=== PATIENT | male | born 1990 | race Caucasian/White ===

== ENCOUNTER 2017-02-09 17:46 | Emergency (ER) | payer MEDICAID, OTHER ==
[~2017-02-09] VITALS: Ht 175.3 cm; Wt 75.5 kg
[2017-02-09 18:41] VITALS: Ht 175.3 cm; Wt 75.5 kg
[2017-02-09] MEDS ORDERED: MECLIZINE 12.5 MG TAB PO ONE (21:00)
--- NOTE | 2017-02-09 21:11 | ERD ---
ER Documentation Chief Complaint Chief Complaint dizziness off/on x3 months. +nosebleed x1 year HPI 26-year-old male for complaints of on and off dizziness for 3 months now, describes the dizziness as spinning sensation, on and off, felt lightheaded at times. Patient is also complains of on and off headache, throbbing pain 4/10 scale, not better or worse with anything. Patient denies any nausea vomiting diarrhea or. Patient is on and off nasal bleeds, last nosebleed episode was 2 days ago. Patient denies any other bleeding symptoms. Patient denies any blood in the stool or black stool. Patient denies any other bleeding symptoms ROS All systems reviewed and are negative except as per history of present illness. Medications Home Meds Reported Medications [none] Unknown Strength No Conflict Check 02/09/17 Allergies Allergies: Coded Allergies: No Known Drug Allergy (Verified Allergy, Unknown, 02/09/17) PMhx/Soc Medical and Surgical Hx: pt denies Medical Hx, pt denies Surgical Hx Hx Alcohol Use: No Hx Substance Use: No Hx Tobacco Use: No Smoking Status: Never smoker FmHx Family History: No coronary disease, No diabetes, No other Physical Exam Vitals Vital Signs Date Time Temp Pulse Resp B/P Pulse Ox O2 Delivery O2 Flow Rate FiO2 02/09/17 18:41 98.8 78 18 125/92 100 Physical Exam GENERAL: The patient is well developed and appropriate for usual state of health, in no apparent distress. CHEST: Clear to auscultation bilaterally. There are no rales, wheezes or rhonchi. HEART: Regular rate and rhythm. No murmurs, clicks, rubs or gallops. No S3 or S4. ABDOMEN: Soft, nontender and nondistended. Good bowel sounds. No rebound or guarding. No gross peritonitis. No gross organomegaly or masses. No Villegas sign or McBurney point tenderness. BACK: No midline or flank tenderness. EXTREMITIES: Equal pulses bilaterally. There is no peripheral clubbing, cyanosis or edema. No focal swelling or erythema. Full range of motion. Grossly neurovascularly intact. NEURO: Alert and oriented. Cranial nerves 2-12 intact. Motor strength in all 4 extremities with 5/5 strength. Sensation grossly intact. Normal speech and gait. Negative Romberg sign. Negative pronator drift. Positive Nieves-Hallpike exam SKIN: There is no apparent rash or petechia. The skin is warm and dry. HEMATOLOGIC AND LYMPHATIC: There is no evidence of excessive bruising or lymphedema. No gross cervical, axillary, or inguinal lymphadenopathy. Result Diagram: 02/09/17209902/09/172099 Results 24 hrs Laboratory Tests Test 02/09/17 21:00 White Blood Count 15.410^3/ul Red Blood Count 5.1310^6/ul Hemoglobin 14.5g/dl Hematocrit 42.6% Mean Corpuscular Volume 83.0fl Mean Corpuscular Hemoglobin 28.3pg Mean Corpuscular Hemoglobin Concent 34.0g/dl Red Cell Distribution Width 12.9% Platelet Count 16929^3/UL Mean Platelet Volume 12.1fl Neutrophils % 77.2% Lymphocytes % 14.6% Monocytes % 7.3% Eosinophils % 0.3% Basophils % 0.3% Nucleated Red Blood Cells % 0.0/100WBC Neutrophils # 11.910^3/ul Lymphocytes # 2.310^3/ul Monocytes # 1.110^3/ul Eosinophils # 0.010^3/ul Basophils # 0.110^3/ul Nucleated Red Blood Cells # 0.010^3/ul Sodium Level 141mmol/L Potassium Level 4.0mmol/L Chloride Level 97mmol/L Carbon Dioxide Level 28mmol/L Anion Gap 20 Blood Urea Nitrogen 14mg/dl Creatinine 0.99mg/dl Glucose Level 72mg/dl Calcium Level 10.2mg/dl Total Bilirubin 0.9mg/dl Direct Bilirubin 0.00mg/dl Indirect Bilirubin 0.9mg/dl Aspartate Amino Transf (AST/SGOT) 36IU/L Alanine Aminotransferase (ALT/SGPT) 40IU/L Alkaline Phosphatase 82IU/L Total Protein 9.2g/dl Albumin 5.3g/dl Globulin 3.90g/dl Albumin/Globulin Ratio 1.35 Current Medications Medications (Trade) Dose Ordered Sig/Lisset Route PRN Reason Start Time Stop Time Status Last Admin Dose Admin Meclizine HCl (Antivert) 25 mg ONCE ONCE PO 02/09/17 21:00 02/09/17 21:01 DC 02/09/17 21:08 Meclizine was given here in emergency department. EKG was done, read by me and is normal sinus rhythm at a rate of 72, normal axis , there is no ST changes or changes in the EKG that indicates any cardiac emergencies at this time. Patient's EKG was also reviewed by Dr. Youssef. Impression: no acute findings on EKG PROCEDURE: CT Brain without. CLINICAL INDICATION: Dizziness. TECHNIQUE: A CT of the brain was performed on multidetector high-resolution CT scanner utilizing axial sections from the skull base through the vertex without contrast. The scan was reviewed in soft tissue brain and high frequency resolution bone algorithm windows. Images were reviewed on a high- resolution PACS workstation. One or more the following does reduction techniques were utilized: Automated exposure control, adjustment of the mA/ or kV according to patient's size, or use of iterative reconstruction technique. The exam CTDI = 40.37 mGy and the DLP = 811.77 mGy-cm. COMPARISON: None available. FINDINGS: The ventricles and sulci are age-appropriate. There is no intracranial hemorrhage, mass effect or midline shift. No abnormal intra-axial or extra- axial fluid collections are seen. The richardson/white matter differentiation is preserved. No acute skull abnormality is noted. The visualized paranasal sinuses are essentially clear. IMPRESSION: 1. No acute intracranial hemorrhage, transcortical infarction or mass effect. RPTAT: HFN .Ranulfo Villafuerte MD, MD Date Time Electronically viewed and signed by .Ranulfo Villafuerte MD, MD on 02/09/2017 22: 03 .N/ CC: [facility] Procedures/MDM Medical Decision Making: Patient symptoms dizziness and headache nonspecific at this time. Patient's platelets are normal, no symptoms of any coagulopathies. No nasal bleeding noted at this time.. There is low suspicion for neurological emergencies at this time since patients neurologic exam is normal. Patient did not have any altered level consciousness, vomiting, changes in balance or memory and did not have any head injury. Patients CT scan of the head does not show any neurological emergencies at this time. Rx: Meclizine, Zyrtec Dispostion: Home. Stable Disclaimer: Inadvertent spelling and grammatical errors are likely due to EHR/ dictation software use and do not reflect on the overall quality of patient care. Also, please note that the electronic time recorded on this note does not necessarily reflect the actual time of the patient encounter. Departure Diagnosis: Primary Impression: Vertigo Additional Impression: Epistaxis Condition: Stable Patient Instructions: Epistaxis (Adult) ROSE PADILLA NP Feb 09, 2017 21:10
--- NOTE | 2017-02-09 22:04 | RADRPT ---
PROCEDURE: CT Brain without. CLINICAL INDICATION: Dizziness. TECHNIQUE: A CT of the brain was performed on multidetector high-resolution CT scanner utilizing a xial sections from the skull base through the vertex without contrast. The scan was reviewed in sof t tissue brain and high frequency resolution bone algorithm windows. Images were reviewed on a high -resolution PACS workstation. One or more the following does reduction techniques were utilized: Aut omated exposure control, adjustment of the mA/ or kV according to patient's size, or use of iterativ e reconstruction technique. The exam CTDI = 40.37 mGy and the DLP = 811.77 mGy-cm. COMPARISON: None available. FINDINGS: The ventricles and sulci are age-appropriate. There is no intracranial hemorrhage, mass effect or mi dline shift. No abnormal intra-axial or extra-axial fluid collections are seen. The richardson/white samir er differentiation is preserved. No acute skull abnormality is noted. The visualized paranasal sinus es are essentially clear. IMPRESSION: 1. No acute intracranial hemorrhage, transcortical infarction or mass effect. RPTAT: HFN .Ranulfo Villafuerte MD, MD Date Time Electronically viewed and signed by .Ranulfo Villafuerte MD, MD on 02/09/2017 22:03 .N/
[2017-02-09] MEDS ORDERED: CETI10CA PO (22:19)
[2017-02-09] MEDS ORDERED: MECL12.574 PO (22:19)
== END 2017-02-09 22:34 | disposition home or self-care (01) ==
LOC: FTE 17:46
DX: R42 Dizziness and giddiness (principal); R04.0 Epistaxis
CPT/HCPCS: 70450; 80053; 85025; 93005; Z7502; Z7610